=== PATIENT | female | born 1960 | race American Indian/Alaskan Native ===

== ENCOUNTER 2019-08-20 12:31 | Outpatient (CLI) | payer OTHER ==
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
== END 2019-08-20 12:32 | disposition home or self-care (01) ==
LOC: SPVIMAG 12:31
PROVIDERS: ATTEND Family Medicine
DX: M54.2 Cervicalgia (principal)
CPT/HCPCS: 72050